=== PATIENT | male | born 1955 | race Caucasian/White ===

== ENCOUNTER 2019-07-17 19:23 | Emergency (ER) | payer MEDICARE, OTHER ==
[~2019-07-17] VITALS: Ht 170.2 cm; Wt 83.9 kg
[~2019-07-17 19:23] MED LIST: ASPIR 8181 MG PO; CARVEDILOL25 MG PO; FUROSEMIDE40 MG PO; GLIPIZIDE5 MG PO; K DUR10 MEQ PO; KOMBIGLYZE XR1 EACH PO; LANTUS100 UNITS/ SQ; LISINOPRIL10 MG PO; LOSARTAN POTASS50 MG PO; MECLIZINE HCL12.5 MG PO; OMEPRAZOLE40 MG PO; PLAVIX75 MG PO; SIMVASTATIN20 MG PO
--- OUTSIDE RECORDS SUMMARY | 2019-07-17 19:26 | XMS REPORT | Clinical Summary ---
Author Author [facility] Organization [facility] Address Unknown Phone Unavailable Care Team Providers Care Analyst Competitive Intelligence Name Role Phone Christopher Dent MD PCP Allergies No Known Allergies Medications End Date Status Medication Sig Dispensed Refills Start Date Active aspirin (ECOTRIN) 81 MG Take 81 mg by 0 enteric coated tablet mouth every evening. Active furosemide (LASIX) 40 mg Take 40 mg by 0 tablet mouth daily as needed. Active pantoprazole (PROTONIX) Take 40 mg by 0 40 MG EC tablet mouth daily. Active clopidogrel (PLAVIX) 75 Take 75 mg by 0 mg tablet mouth every morning. Active empagliflozin (JARDIANCE) Take 25 mg by 0 25 mg tablet mouth daily. Active potassium chloride Take 8 mEq by 0 (KLOR-CON 8) 8 MEQ CR mouth daily tablet as needed. Active carvedilol (COREG) 25 MG 1 tablet with 0 tablet food BID Active losartan (COZAAR) 25 MG Take 12.5 mg 0 tablet by mouth nightly. 11/10/2018 Discontinued (Stop Taking at Discharge) carvedilol (COREG) 25 MG Take 25 mg by 0 tablet mouth 2 (two) times a day with meals. 08/14/2018 Discontinued (Reorder) levocetirizine (XYZAL) 5 Take 1 tablet 30 tablet 11 201 MG tablet (5 mg total) 8 by mouth every evening. 08/14/2018 Discontinued (Reorder) azelastine (ASTELIN) 137 1 spray into 30 mL 12 mcg (0.1 %) nasal spray each nostril 8 2 (two) times a day. Use in each nostril as directed 11/09/2018 Discontinued levocetirizine (XYZAL) 5 Take 1 tablet 90 tablet 3 201 MG tablet (5 mg total) 8 by mouth every evening. 11/25/2018 Discontinued (Therapy completed) azelastine (ASTELIN) 137 1 spray into 90 mL 3 mcg (0.1 %) nasal spray each nostril 8 2 (two) times a day. Use in each nostril as directed 11/10/2018 Discontinued (Stop Taking at Discharge) potassium chloride Take 10 mEq 0 (K-DUR,KLOR-CON) 10 MEQ by mouth 2 CR tablet (two) times a day. 06/13/2019 Discontinued cyanocobalamin (VITAMIN Take 1,000 0 B-12) 1000 MCG tablet mcg by mouth 2 (two) times a day. 06/13/2019 Discontinued cholecalciferol, vitamin Take 1,000 0 D3, (VITAMIN D3) 1,000 Units by unit tablet mouth every morning. 06/13/2019 Discontinued multivitamin (THERAGRAN) Take 1 tablet 0 tablet by mouth daily. 12/10/2018 carvedilol (COREG) 12.5 Take 1 tablet 60 tablet 0 MG tablet (12.5 mg 8 total) by mouth 2 (two) times a day with meals for 30 days. 12/10/2018 losartan (COZAAR) 25 MG Take 1 tablet 30 tablet 0 tablet (25 mg total) 8 by mouth daily for 30 days. 12/10/2018 digOXIN (LANOXIN) 125 mcg Take 1 tablet 30 tablet 0 tablet (125 mcg 8 total) by mouth daily for 30 days. 06/13/2019 Discontinued sitaGLIPtin-metformin Take 1 tablet 0 (JANUMET XR) 100-1,000 mg by mouth tablet, ER multiphase 24 every hr evening. 12/15/2018 ranolazine (RANEXA) 500 Take 1 tablet 60 tablet 0 MG 12 hr ER tablet (500 mg 8 total) by mouth 2 (two) times a day for 30 days. 11/26/2018 Discontinued (Stop Taking at Discharge) isosorbide mononitrate Take 1 tablet 30 tablet 0 (IMDUR) 30 MG 24 hr (30 mg total) 8 tablet by mouth daily for 30 days. 06/14/2019 Discontinued (Stop Taking at Discharge) DIGOX 125 mcg tablet TK 1 T PO QD 3 9 06/13/2019 Discontinued zolpidem CR (AMBIEN CR) 1 tablet at 0 12.5 MG CR tablet bedtime 07/14/2019 amIODarone (PACERONE) 400 Take 1 tablet 30 tablet 0 MG tablet (400 mg 9 total) by mouth daily for 30 days. Active Problems Problem Noted Date Angina effort 11/25/2018 CAD (coronary artery disease) 11/25/2018 Chest pain 11/15/2018 AICD discharge 11/08/2018 Resolved Problems Problem Noted Date Resolved Date SOB (shortness of breath) 11/14/2018 11/15/2018 Encounters Care Team Description Date Type Specialty Aneesh Chang MD Zachariah, MD Inga Marie, Hansel Tolbert MD Chest pain, unspecified type (Primary Dx); Defibrillator discharge 06/12/2019 [facility] General Internal Medicine - Encounter 06/14/2019 Supa Flores MD PCI W/ STENTING [63584 (CPT)] 11/25/2018 Surgery Procedural Cardiology Supa Flores MD 11/25/2018 Hospital Intensive Care - Encounter 11/26/2018 Kaelyn Nichole MD Left heart cath w lv gram cors. Dr Flores on standby [64685 (CPT)] 11/15/2018 Surgery Procedural Cardiology Dusty Duong MD Ghosh, Sidharth, MD SOB (shortness of breath) (Primary Dx); Chest pain at rest; Other forms of angina pectoris (HCC) 11/14/2018 [facility] General Internal Medicine - Encounter 11/15/2018 Ja Dougherty DO Ghosh, Sidharth, MD AICD discharge (Primary Dx); SVT (supraventricular tachycardia) (HCC) 11/08/2018 [facility] General Surgery - Encounter 11/10/2018 11/08/2018 Travel Tracy Burns MA 08/20/2018 Telephone Otolaryngology Elizabeth Dias MD Chronic allergic rhinitis, unspecified seasonality, unspecified trigger (Primary Dx) 08/14/2018 Office Visit Otolaryngology after 07/16/2018 Social History Date Tobacco Use Types Packs/Day Years Used Never Smoker Smokeless Tobacco: Never Used Drinks/Week oz/Week Comments Alcohol Use No Sex Assigned at Date Recorded Not on file Industry Job Start Date Occupation Not on file Not on file Not on file Travel End Travel History Travel Start No recent travel history available. Last Filed Vital Signs Reading Time Taken Comments Vital Sign 108/67 06/14/2019 11:46 AM CDT Blood Pressure 79 06/14/2019 11:46 AM CDT Pulse 36.7 C (98 F) 06/14/2019 11:46 AM CDT Temperature 12 06/14/2019 11:46 AM CDT Respiratory Rate 94% 06/14/2019 11:46 AM CDT Oxygen Saturation - - Inhaled Oxygen Concentration 78 kg (172 lb) 11/25/2018 11:53 AM NUT PACKER Weight 165.1 cm (5' 5") 06/12/2019 8:26 PM CDT Height 26.94 11/25/2018 11:53 AM NUT PACKER Body Mass Index Plan of Treatment Health Maintenance Due Date Last Done Comments COLONOSCOPY SCREENING 2004 SHINGLES VACCINES (#1) 2004 INFLUENZA VACCINE 06/19/2019 Implants Device Identifier Shelf Expiration Date Model / Serial / Lot Implanted Type Area Manufactur er 10/18/2020 [id number] / / [id number] Device Vasclr Clsr Baln Cath 10ml Cardiovasc Right: Groin CARDINAL Lkng Sy[id number] Implants Implanted: Qty: 1 on 11/25/2018 by Neeta Espinoza at [facility] 06/26/2020 [id number] / / [id number] Stent Cornorary Syst Synergy (Mr) Coronary N/A: Coronary BSC 2.50mm X 16mm - [id number] Stents INTERVENTI Implanted: Qty: 1 on 11/25/2018 by Supa Claire MD at [facility] Procedures Comments Procedure Name Priority Date/Time Associated Diagnosis POC GLUCOSE Routine 06/14/2019 11:47 AM CDT LIPID PANEL Routine 06/14/2019 7:20 AM CDT ECG 12-LEAD Routine 06/14/2019 5:59 AM CDT POC GLUCOSE Routine 06/14/2019 5:41 AM CDT POC GLUCOSE Routine 06/13/2019 8:30 PM CDT POC GLUCOSE Routine 06/13/2019 5:03 PM CDT POC GLUCOSE Routine 06/13/2019 11:24 AM CDT TROPONIN Timed 06/13/2019 7:49 AM CDT POC GLUCOSE Routine 06/13/2019 7:30 AM CDT TROPONIN Timed 06/13/2019 4:50 AM CDT TROPONIN Timed 06/13/2019 12:46 AM CDT B NATRIURETIC PEPTIDE STAT 06/12/2019 9:[address] HEAD WO CONTRAST STAT 06/12/2019 9:34 PM CDT XR CHEST 1 VW PORTABLE STAT 06/12/2019 9:31 PM CDT HC COMPLETE BLD COUNT STAT 06/12/2019 W/AUTO DIFF 9:14 PM CDT ESTIMATED GFR Routine 06/12/2019 8:45 PM CDT TROPONIN Routine 06/12/2019 8:45 PM CDT CREATINE KINASE, TOTAL Routine 06/12/2019 (CPK) 8:45 PM CDT COMPREHENSIVE METABOLIC Routine 06/12/2019 PANEL 8:45 PM CDT ECG 12-LEAD Routine 06/12/2019 8:30 PM CDT CV PCI STENT Routine 11/25/2018 3:12 PM NUT PACKER POC GLUCOSE Routine 11/25/2018 3:11 PM NUT PACKER ECG 12-LEAD Routine 11/25/2018 11:35 AM NUT PACKER TYPE AND SCREEN STAT 11/25/2018 11:25 AM NUT PACKER ESTIMATED GFR STAT 11/25/2018 11:23 AM NUT PACKER DIGOXIN LEVEL STAT 11/25/2018 11:23 AM NUT PACKER PARTIAL THROMBOPLASTIN STAT 11/25/2018 TIME (PTT) 11:23 AM NUT PACKER PROTHROMBIN TIME WITH INR STAT 11/25/2018 11:23 AM NUT PACKER BASIC METABOLIC PANEL STAT 11/25/2018 11:23 AM NUT PACKER HC COMPLETE BLD COUNT STAT 11/25/2018 W/AUTO DIFF 11:23 AM NUT PACKER XR CHEST 2 VW Routine 11/25/2018 11:10 AM NUT PACKER POC GLUCOSE Routine 11/15/2018 4:02 PM NUT PACKER CV SELECTIVE CORONARY Routine 11/15/2018 ANGIOGRAPHY 12:20 PM NUT PACKER ECG 12-LEAD Routine 11/15/2018 8:51 AM NUT PACKER LIPID PANEL Routine 11/15/2018 8:03 AM NUT PACKER THYROID STIMULATING Routine 11/15/2018 HORMONE 8:03 AM NUT PACKER MAGNESIUM LEVEL Routine 11/15/2018 8:03 AM NUT PACKER TROPONIN Timed 11/15/2018 8:03 AM NUT PACKER POC GLUCOSE Routine 11/15/2018 5:03 AM NUT PACKER ECG 12-LEAD Routine 11/15/2018 4:25 AM NUT PACKER TROPONIN Timed 11/15/2018 4:10 AM NUT PACKER ECG 12-LEAD Routine 11/15/2018 12:[address] ANGIOGRAM PE CHEST STAT 11/14/2018 10:50 PM NUT PACKER ECG ED PRELIMINARY Routine 11/14/2018 INTERPRETATION 9:26 PM NUT PACKER XR CHEST 1 VW PORTABLE STAT 11/14/2018 9:22 PM NUT PACKER ESTIMATED GFR STAT 11/14/2018 9:10 PM NUT PACKER COMPREHENSIVE METABOLIC STAT 11/14/2018 PANEL 9:10 PM NUT PACKER TROPONIN STAT 11/14/2018 9:10 PM NUT PACKER B NATRIURETIC PEPTIDE STAT 11/14/2018 9:10 PM NUT PACKER DIGOXIN LEVEL STAT 11/14/2018 9:10 PM NUT PACKER HC COMPLETE BLD COUNT STAT 11/14/2018 W/AUTO DIFF 9:10 PM NUT PACKER ECG 12-LEAD STAT 11/14/2018 9:05 PM NUT PACKER POC GLUCOSE Routine 11/10/2018 5:36 AM NUT PACKER ESTIMATED GFR Routine 11/10/2018 4:55 AM NUT PACKER IONIZED CALCIUM Routine 11/10/2018 4:55 AM NUT PACKER MAGNESIUM LEVEL Routine 11/10/2018 4:55 AM NUT PACKER HC COMPLETE BLD COUNT Routine 11/10/2018 W/AUTO DIFF 4:55 AM NUT PACKER BASIC METABOLIC PANEL Routine 11/10/2018 4:55 AM NUT PACKER POC GLUCOSE Routine 11/09/2018 8:25 PM NUT PACKER POC GLUCOSE Routine 11/09/2018 5:19 PM NUT PACKER ECHOCARDIOGRAM 2D Routine 11/09/2018 COMPLETE W MMODE SPECTRAL 1:03 PM NUT PACKER COLOR DOPPLER ([id number]) POC GLUCOSE Routine 11/09/2018 11:53 AM NUT PACKER ESTIMATED GFR Routine 11/09/2018 7:30 AM NUT PACKER BASIC METABOLIC PANEL Routine 11/09/2018 7:30 AM NUT PACKER IONIZED CALCIUM Routine 11/09/2018 7:30 AM NUT PACKER MAGNESIUM LEVEL Routine 11/09/2018 7:30 AM NUT PACKER TROPONIN Timed 11/09/2018 4:30 AM NUT PACKER TROPONIN Timed 11/09/2018 12:00 AM NUT PACKER XR CHEST 1 VW PORTABLE STAT 11/08/2018 7:41 PM NUT PACKER ESTIMATED GFR STAT 11/08/2018 7:16 PM NUT PACKER CREATINE KINASE, TOTAL STAT 11/08/2018 (CPK) 7:16 PM NUT PACKER BASIC METABOLIC PANEL STAT 11/08/2018 7:16 PM NUT PACKER TROPONIN STAT 11/08/2018 7:16 PM NUT PACKER HC COMPLETE BLD COUNT STAT 11/08/2018 W/AUTO DIFF 7:16 PM NUT PACKER ECG 12-LEAD STAT 11/08/2018 7:09 PM NUT PACKER ECG ED PRELIMINARY Routine 11/08/2018 INTERPRETATION 7:07 PM NUT PACKER after 07/16/2018 Results * POC glucose (06/14/2019 11:47 AM CDT) Only the most recent of 13 results within the time period is included. [facility] POC glucose 197 (H) 65 - 99 mg/dL EMPIRE Comment: [facility] Meter ID: [id number] [facility] Perishable Fruit Inspector: Corie Marsh Specimen Performing Organization Address City/State/Zipcode [place] [address] [place] [phone] PATHOLOGY AND GENOMIC MEDICINE [facility] [address] [place] [id number] [facility] * Lipid panel (06/14/2019 7:20 AM CDT) Only the most recent of 2 results within the time period is included. [facility] Cholesterol 136 <200 mg/dL [facility] Triglycerides 308 (A) <150 mg/dL [facility] HDL cholesterol 32 (L) >40 mg/dL [facility] LDL cholesterol 84Comment: Result obtained by <100 mg/dL EMPIRE direct LDL measurement [facility] Lipid panel [facility] interpretation Comment: MICA H[facility] Total Cholesterol [facility] (mg/dL) <200 Desirable 200-239Borderline -high >=240High Triglycerides (mg/dL) <150 Normal 150-199Borderline -high 200-499High >=500Very high HDL Cholesterol (mg/dL) <40Low (male) <40Low (female) LDL Cholesterol (mg/dL) <100 Optimal 100-129Near or above optimal 130-159Borderline -high 160-189High >=190Very high Risk Catergories that modify LDL goals. Risk Catergories LDL goal (mg/dL) CHD and CHD risk equivalent<100 (10-year risk >20%) Multiple (2+) risk factors <130 (10-year risk=<20%) 0-1 risk factors <160 (<10-year risk) Defining levels of lipids in metabolic syndrome Triglycerides >=150 mg/dL HDL Cholesterol Men <40 mg/dL Women <40 mg/dL Non-HDL cholesterol is a second target for therapy in persons with high triglycerides (>=200 mg/dL) Specimen Plasma specimen Performing Organization Address City/State/[facility] Phone Number [place] [address] [address] [address] PATHOLOGY AND GENOMIC MEDICINE [facility] [id number] [place] [address] [place] [phone] [facility] * ECG 12 lead (06/14/2019 5:59 AM CDT) Only the most recent of 8 results within the time period is included. Ventricular 77 [facility] rate Atrial rate 77 [facility] MO interval 174 [facility] QRSD interval 90 [facility] QT interval 348 [facility] QTC interval 393 [facility] P axis 1 72 [facility] QRS axis 1 -11 [facility]USE T wave axis 270 [facility] EKG impression Normal sinus rhythm-Low [facility]USE voltage QRS-Nonspecific ST and T wave abnormality-Abnormal ECG-No previous ECGs available- Specimen Narrative Performed At Performing Organization Address City/[facility] Phone Number [facility] [address] [place] [address] * Troponin (06/13/2019 7:49 AM CDT) Only the most recent of 10 results within the time period is included. Troponin 0.017 0.000 - 0.040 ng/mL EMPIRE Comment: MICA HAMILTON [facility] changed methodology effective: 03/25/2019 at 10:00 am The new method has a 99th percentile cutoff of 0.040 ng/mL Specimen Plasma specimen Performing Organization Address [facility] Phone Number [facility] [address] [address] PATHOLOGY AND GENOMIC MEDICINE [address] [place] [address] * B natriuretic peptide (06/12/2019 9:40 PM CDT) Only the most recent of 2 results within the time period is included. BNP 46 0 - 100 pg/mL [facility] Specimen Blood Performing Organization Address [facility] Phone Number [facility] [address] [place] [address] PATHOLOGY AND GENOMIC MEDICINE [address] * CT Head Wo Contrast (06/12/2019 9:34 PM CDT) Specimen Narrative Performed At EXAM: CT HEAD WO CONTRAST [facility] CLINICAL HISTORY: worsening headache TECHNIQUE: Noncontrast enhanced images of the brain were obtained from the skull base to the vertex. Both soft tissue and bone reconstruction algorithms were performed. CT scans are performed using radiation dose reduction techniques (iterative reconstruction and/or automated exposure control). Technical factors are evaluated and adjusted to ensure appropriate moderation of exposure. Automated dose management technology is applied to adjust radiation exposure while achieving a diagnostic quality image. COMPARISON:None. 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 Correlate findings with clinical history and prior imaging if available. If not available, nonemergent MRI of the brain should be considered for further evaluation. The zeng-white matter differentiation is preserved and without evidence of acute territorial infarction. There is no evidence for acute intracranial hemorrhage, mass, mass effect, hydrocephalus, or extra-axial fluid collection. Orbits are unremarkable.Paranasal sinuses are clear.Mastoid air cells are normally pneumatized.Osseous structures are intact. 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 Correlate findings with clinical history and prior imaging if available. If not available, nonemergent MRI of the brain should be considered for further evaluation. No CT evidence for acute intracranial abnormality. [facility]-[id number] Procedure Note Hm Interface, Radiology Results Incoming - 06/12/2019 9:44 PM CDT EXAM: CT HEAD WO CONTRAST CLINICAL HISTORY: worsening headache TECHNIQUE: Noncontrast enhanced images of the brain were obtained from the skull base to the vertex. Both soft tissue and bone reconstruction algorithms were performed. CT scans are performed using radiation dose reduction techniques (iterative reconstruction and/or automated exposure control). Technical factors are evaluated and adjusted to ensure appropriate moderation of exposure. Automated dose management technology is applied to adjust radiation exposure while achieving a diagnostic quality image. COMPARISON: None. 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 Correlate findings with clinical history and prior imaging if available. If not available, nonemergent MRI of the brain should be considered for further evaluation. The zeng-white matter differentiation is preserved and without evidence of acute territorial infarction. There is no evidence for acute intracranial hemorrhage, mass, mass effect, hydrocephalus, or extra-axial fluid collection. Orbits are unremarkable. Paranasal sinuses are clear. Mastoid air cells are normally pneumatized. Osseous structures are intact. 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 Correlate findings with clinical history and prior imaging if available. If not available, nonemergent MRI of the brain should be considered for further evaluation. No CT evidence for acute intracranial abnormality. [facility]-[id number] Performing Organization Address City/State/Zipcode Phone Number [facility] [address] [place] [address] * XR Chest 1 Vw Portable (06/12/2019 9:31 PM CDT) Only the most recent of 3 results within the time period is included. Specimen Narrative Performed At EXAMINATION: XR CHEST 1 VW PORTABLE [facility] CLINICAL HISTORY: SOB COMPARISON:11/25/2018. IMPRESSION: Right AICD with stable lead. The lungs are clear. No pleural effusion or pneumothorax. The cardiomediastinal silhouette is normal. No acute osseous abnormalities. [facility]-[id number] Procedure Note Hm Interface, Radiology Results Incoming - 06/12/2019 9:45 PM CDT EXAMINATION: XR CHEST 1 VW PORTABLE CLINICAL HISTORY: SOB COMPARISON: 11/25/2018. IMPRESSION: Right AICD with stable lead. The lungs are clear. No pleural effusion or pneumothorax. The cardiomediastinal silhouette is normal. No acute osseous abnormalities. [facility]-[id number] Performing Organization Address [facility] Phone Number [facility] [address] [place] [address] * CBC with platelet and differential (06/12/2019 9:14 PM CDT) Only the most recent of 5 results within the time period is included. WBC 13.07 (H) 4.50 - 11.00 k/uL [facility] RBC 4.70 4.40 - 6.00 m/uL [facility] HGB 15.0 14.0 - 18.0 g/dL [facility] HCT 43.4 41.0 - 51.0 % [facility] MCV 92.3 82.0 - 100.0 fL [facility] MCH 31.9 27.0 - 34.0 pg [facility] MCHC 34.6 31.0 - 37.0 g/dL [facility] RDW - SD 42.1 37.0 - 55.0 fL [facility] MPV 12.1 8.8 - 13.2 fL [facility] Platelet count 184 150 - 400 k/uL [facility] Nucleated RBC 0.00 /100 WBC [facility] Neutrophils 62.3 39.0 - 69.0 % [facility] Lymphocytes 24.6 (L) 25.0 - 45.0 % [facility] Monocytes 10.7 (H) 0.0 - 10.0 % [facility] Eosinophils 1.4 0.0 - 5.0 % [facility] Basophils 0.5 0.0 - 1.0 % [facility] Specimen Blood Performing Organization Address City/[facility]/Zipcode Phone Number [facility] [place] [id number] [place] [address] [place] [address] PATHOLOGY AND GENOMIC MEDICINE [address] * Estimated GFR (06/12/2019 8:45 PM CDT) Only the most recent of 6 results within the time period is included. [facility] Estimated GFR 89 mL/min/1.73 m2 EMPIRE Comment: [facility] rpretation G1 >=90 Normal or high G2 60-89Mildly decreased [id number] Mildly to moderately decreased [id number] Moderately to severely decreased G4 15-29Severely decreased G5 <15Kidney failure The eGFR was calculated using the Chronic Kidney Disease Epidemiology Collaboration (CKD-EPI) equation. Interpretation is based on recommendations of the National Kidney Foundation-Kidney Disease Outcomes Quality Initiative (NKF-KDOQI) published in 2014. Specimen Plasma specimen Performing Organization Address [facility] Phone Number [address] [place] [address] PATHOLOGY AND [facility] MEDICINE [address] * Creatine kinase, total (CPK) (06/12/2019 8:45 PM CDT) Only the most recent of 2 results within the time period is included. [facility] Creatine kinase 185 39 - 308 U/L [facility] Specimen Plasma specimen Performing Organization Address [facility] Phone Number [facility] DE[facility] [address] [place] [address] PATHOLOGY AND [facility] MEDICINE [address] * Comprehensive metabolic panel (06/12/2019 8:45 PM CDT) Only the most recent of 2 results within the time period is included. [facility] Sodium 139 135 - 148 mEq/L [facility] Potassium 3.9 3.5 - 5.0 mEq/L [facility] Chloride 105 98 - 112 mEq/L [facility] CO2 20 (L) 24 - 31 mEq/L [facility] Anion gap 14@ANIO 7 - 15 mEq/L [facility] BUN 10 8 - 23 mg/dL [facility] Creatinine 0.90 0.70 - 1.20 mg/dL [facility] Glucose 259 (H) 65 - 99 mg/dL [facility] Calcium 9.6 8.8 - 10.2 mg/dL [facility] Protein 6.9 6.3 - 8.3 g/dL EMPIRE Comment: [facility] 4.6-7.0 g/dL 1 week 4.4-7.6 g/dL 7 months-1year 5.1-7.3 g/dL 1-2 years5.6-7 .5 g/dL >3 years6.0-8 .0 g/dL 18-150 6.3-8.3 g/dL Albumin 4.6 3.5 - 5.0 g/dL [facility] A/G ratio 2.0 0.7 - 3.8 [facility] Alkaline 114 40 - 129 U/L EMPIRE phosphatase [facility] AST 19 10 - 50 U/L [facility] ALT 25 5 - 50 U/L [facility] Total bilirubin 0.3 0.0 - 1.2 mg/dL [facility] Specimen Plasma specimen Performing Organization Address City/State/Zipcode [place] Number [place] [address] [place] [address] PATHOLOGY AND GENOMIC MEDICINE [facility] [address] * Cv solar lab technician procedure (11/25/2018 3:12 PM NUT PACKER) Specimen Narrative Performed At CUPID PROCEDURE: Intracoronary stent placement in the AV circumflex artery. INDICATION: 1.Angina. 2.Coronary artery disease. COMPLICATIONS: None. ANESTHESIA: Versed, fentanyl, and lidocaine. TECHNIQUE: The right groin was draped and prepped in the usual fashion.The area was anesthetized with lidocaine.Standard Seldinger technique was used to place a 6-Yi sheath into the right femoral artery without difficulty.An XB 3.5 guiding catheter was used to selectively engage the left coronary artery. A ChoICE PT wire was used to cross the area of 70% stenosis in the distal circumflex artery.The area was predilated with a 2.5 x 12 mm balloon.A 2.5 mm x 16 mm Synergy stent was then deployed at 16 atmospheres for 30 seconds with minimal residual stenosis.The stent was then postdilated with a 2.5 mm x 12 mm noncompliant balloon inflated up to 18 atmospheres.A Mynx device was used for closure.There were no complications. CONCLUSIONS: Successful stent placement in the distal circumflex artery. Performing Organization Address [facility] Phone Number [facility] [address] [place] [address] * Type and screen (11/25/2018 11:25 AM NUT PACKER) Pathologist [facility] ABO grouping O [facility] Rh type POS [facility] Antibody screen NEG [facility] Specimen Blood Performing Organization Address [facility] Phone Number [address] [place] [address] PATHOLOGY [facility] MEDICINE [address] * Partial thromboplastin time, activated (11/25/2018 11:23 AM NUT PACKER) [facility] PTT 19.7 (L) 23.0 - 36.0 sec EMPIRE Comment: [facility] PTT therapeutic range for [facility] unfractionated heparin is 61.0-112.0 seconds which corresponds to Anti-Xa 0.3-0.7 U/ml. Specimen Blood Performing Organization Address [facility] [place] [facility] Phone Number [address] [place] [place] AND [address] * Prothrombin time with INR (11/25/2018 11:23 AM NUT PACKER) [facility] Prothrombin 13.5 11.5 - 14.5 sec [facility] INR 1.1 EMPIRE Comment: [facility] The International Normalized [facility] Ratio (INR) is a therapeutic monitoring tool for patients who are stable on oral anticoagulant therapy. An INR of 2.0-3.0 is suggested for deep vein thrombosis/pulmonary embolism. Specimen Blood Performing Organization Address [facility] Phone Number [address] [place] [address] PATHOLOGY [facility] MEDICINE [address] * Digoxin level (11/25/2018 11:23 AM NUT PACKER) Only the most recent of 2 results within the time period is included. Pathologist [facility] Digoxin 0.9 0.8 - 2.0 ng/mL EMPIRE Comment: [facility] For valid Digoxin results, at [facility] least 6 hours should elapse between time of last dose and collection of blood. Otherwise, result may be false high. Therapeutic Range: 0.8 - 2.0 ng/mL Specimen Plasma specimen Performing Organization Address [facility] Phone Number [facility] [address] [place] [address] PATHOLOGY AND GENOMIC MEDICINE [address] * Basic metabolic panel (11/25/2018 11:23 AM NUT PACKER) Only the most recent of 4 results within the time period is included. [facility] Sodium 143 135 - 148 mEq/L [facility] Potassium 4.6 3.5 - 5.0 mEq/L [facility] Chloride 104 98 - 112 mEq/L [facility] CO2 26 24 - 31 mEq/L [facility] Anion gap 13@ANIO 7 - 15 mEq/L [facility] BUN 17 8 - 23 mg/dL [facility] Creatinine 0.90 0.70 - 1.20 mg/dL [facility] Glucose 150 (H) 65 - 99 mg/dL [facility] Calcium 10.3 (H) 8.8 - 10.2 mg/dL [facility] Specimen Plasma specimen Performing Organization Address [facility] Phone Number [facility] [address] [place] [address] PATHOLOGY AND GENOMIC MEDICINE [address] * XR Chest 2 Vw (11/25/2018 11:10 AM NUT PACKER) Specimen Narrative Performed At EXAMINATION:XR CHEST 2 VW [facility] CLINICAL HISTORY:pre-op COMPARISON:Chest x-ray 11/14/2018 IMPRESSION: Frontal and lateral views reveal a stable cardiomediastinal silhouette with a single lead right-sided AICD. Lungs are clear. Pleural margins are sharp. The remainder of the examination is unchanged. [id number] Procedure Note Hm Interface, Radiology Results Incoming - 11/25/2018 11:15 AM NUT PACKER EXAMINATION: XR CHEST 2 VW CLINICAL HISTORY: pre-op COMPARISON: Chest x-ray 11/14/2018 IMPRESSION: Frontal and lateral views reveal a stable cardiomediastinal silhouette with a single lead right-sided AICD. Lungs are clear. Pleural margins are sharp. The remainder of the examination is unchanged. [id number] Performing Organization Address City/State/Zipcode Phone Number [facility] [address] [place] [address] * Cv solar lab technician procedure (11/15/2018 12:20 PM NUT PACKER) Specimen Narrative Performed At Performing Organization Address City/[facility]/Zipcode Phone Number [facility] [address] [place] [address] * Thyroid stimulating hormone (11/15/2018 8:03 AM NUT PACKER) TSH 2.20 0.27 - 4.20 uIU/mL [facility] Specimen Plasma specimen Performing Organization Address [facility] Phone Number [facility] DEPARTMENT [address] [place] [address] PATHOLOGY [facility] MEDICINE [address] * Magnesium level (11/15/2018 8:03 AM NUT PACKER) Only the most recent of 3 results within the time period is included. Magnesium 2.2 1.6 - 2.4 mg/dL [facility] Specimen Plasma specimen Performing Organization Address [facility] Phone Number [address] [place] [address] PATHOLOGY AND [facility] MEDICINE [address] * CT Angiogram Pe Chest (11/14/2018 10:50 PM NUT PACKER) Specimen Narrative Performed At CT ANGIOGRAM PE CHEST [facility] CLINICAL INDICATION: chest painSOBdizziness COMPARISON: Chest radiograph 11/14/2018. TECHNIQUE:CT angiographic images of the chest were obtained during intravenous administration of iodinated contrast.Computerized, reformatted images and 3-D MIP images were obtained and archived (per CT pulmonary embolism protocol). CT scans are performed using radiation dose reduction techniques (iterative reconstruction and/or automated exposure control). Technical factors are evaluated and adjusted to ensure appropriate moderation of exposure. Automated dose management technology is applied to adjust radiation exposure while achieving a diagnostic quality image. FINDINGS: Pulmonary arteries: Diagnostic quality of study is adequate for the evaluation of pulmonary embolism. There is no evidence of acute or chronic pulmonary embolism.No evidence of right heart strain. The main pulmonary artery measures 25 mm in luminal diameter. Aorta:Poorly contrast opacified. Grossly no aortic aneurysm. Moderate calcific atherosclerosis. Lungs and large airways:Dependent subsegmental atelectasis/scarring. No acute airspace consolidation. Pleura:No pleural effusion, pleural thickening, or pneumothorax. Heart and pericardium:Heart size is marginal. Coronary atherosclerosis. No pericardial effusion. Mediastinum and barrett:No mass or hematoma. Lymph nodes:No pathological adenopathy in the barrett, axilla or mediastinum. Chest wall: Right anterior chest wall cardiac device lead projects to the right ventricle. Bones:Mild degenerative changes. Upper abdomen: Right hepatic cyst measuring 1.7 cm. IMPRESSION: 1. Negative CTA examination for pulmonary embolism. 2. Lungs without acute airspace consolidation. [facility]-[id number] Procedure Note [facility], Radiology Results Incoming - 11/14/2018 10:[address] ANGIOGRAM PE CHEST CLINICAL INDICATION: chest pain SOB dizziness COMPARISON: Chest radiograph 11/14/2018. TECHNIQUE: CT angiographic images of the chest were obtained during intravenous administration of iodinated contrast. Computerized, reformatted images and 3-D MIP images were obtained and archived (per CT pulmonary embolism protocol). CT scans are performed using radiation dose reduction techniques (iterative reconstruction and/or automated exposure control). Technical factors are evaluated and adjusted to ensure appropriate moderation of exposure. Automated dose management technology is applied to adjust radiation exposure while achieving a diagnostic quality image. FINDINGS: Pulmonary arteries: Diagnostic quality of study is adequate for the evaluation of pulmonary embolism. There is no evidence of acute or chronic pulmonary embolism. No evidence of right heart strain. The main pulmonary artery measures 25 mm in luminal diameter. Aorta: Poorly contrast opacified. Grossly no aortic aneurysm. Moderate calcific atherosclerosis. Lungs and large airways: Dependent subsegmental atelectasis/scarring. No acute airspace consolidation. Pleura: No pleural effusion, pleural thickening, or pneumothorax. Heart and pericardium: Heart size is marginal. Coronary atherosclerosis. No pericardial effusion. Mediastinum and barrett: No mass or hematoma. Lymph nodes: No pathological adenopathy in the barrett, axilla or mediastinum. Chest wall: Right anterior chest wall cardiac device lead projects to the right ventricle. Bones: Mild degenerative changes. Upper abdomen: Right hepatic cyst measuring 1.7 cm. IMPRESSION: 1. Negative CTA examination for pulmonary embolism. 2. Lungs without acute airspace consolidation. [facility]-[id number] Performing Organization Address City/[facility] Phone Number [facility] [address] [place] [address] * ECG ED Preliminary Interpretation - Not an Order (11/14/2018 9:26 PM NUT PACKER) Only the most recent of 2 results within the time period is included. Narrative Performed At Dusty Duong MD 11/14/2018 11:14 PM ECG ED Preliminary Interpretation - Not an Order Performed by: Dusty Duong MD Authorized by: Dusty Duong MD ECG reviewed by ED Physician in the absence of a marine electronics repairer: yes Previous ECG: Previous ECG:Compared to current Comparison ECG info:11/08/2018 Similarity:No change Interpretation: Interpretation: normal Rate: ECG rate:93 ECG rate assessment: normal Rhythm: Rhythm: sinus rhythm Ectopy: Ectopy: none and PVCs QRS: QRS axis:Normal QRS intervals:Normal Conduction: Conduction: normal ST segments: ST segments:Normal T waves: T waves: normal and non-specific Comments: Read at 2105 * Ionized calcium (11/10/2018 4:55 AM NUT PACKER) Only the most recent of 2 results within the time period is included. pH 7.39 [facility] Ionized calcium 1.14 1.11 - 1.32 mmol/L [facility] Specimen Plasma specimen Performing Organization Address [facility] [place] Number [place] [address] [facility] [place] [address] PATHOLOGY AND GENOMIC MEDICINE [address] [place] [address] [facility] * Echocardiogram complete w contrast and 3D if needed (11/09/2018 1:03 PM NUT PACKER) AoV Area, Vmax 2.40 cm2 [facility] AoV Area, VTI 2.47 cm2 [facility] AoV Mean PG 4.20 mmHg [facility] AoV Peak PG 7.39 mmHg [facility] AoV Vmax 1.36 m/s [facility] AoV VTI 0.21 m [facility] IVS,d 1.26 cm [facility] LV,d 4.42 cm [facility] LV EF,A2C 26.24 % [facility] LV EF,A4C 28.43 % [facility] LV EF,BP 28.26 % [facility] [place],d A2C 7.20 cm [facility] [place],d A4C 7.95 cm [facility] [place],s A2C 6.14 cm [facility] [place],s A4C 6.57 cm [facility] LV,s 3.85 cm [facility] LV SV,A2C 22.65 % [facility] LV SV,A4C 34.12 % [facility] LV Vol,d A2C 86.31 mL [facility] LV Vol,d A4C 120.04 ml [facility] LV Vol,d BP 106.46 ml [facility] LV Vol,s A2C 63.66 mL [facility] LV Vol,s A4C 85.92 ml [facility] LV Vol,s BP 76.38 nl [facility] LVOT Diam,S 2.03 cm [facility] LVOT Vmax 1.01 m/s [facility] LVOT VTI 0.16 m [facility] LVPWD,d 1.09 cm [facility] TR Vpeak 2.47 mm/s [facility] AR Press Half 201.17 ms [facility] Time MV E A ratio 0.64 [facility] TR pk grad 24.43 mmHg [facility] E wave 146.24 msec [facility] decelartion time MV Peak A Bridger 0.98 m/s [facility] MV valve area p 5.13 cm2 [facility] 1/2 method MV Peak E [place] 0.63 m/s [facility] MV stenosis 42.92 ms [facility] pressure 1/2 time AV LVOT peak 4.07 mmHg [facility] gradient LV SYS VOL 91.48 ml [facility] LV SOLIS VOL 126.79 ml [facility] LA area s A4C 14.32 cm2 [facility] LV SV Teich 2D 35.31 ml [facility] LVOT SI 26.93 ml/m2 [facility] AoV Cusp sep 2.02 [facility] AoV Vmn 0.99 [facility] IVS s 2D 1.31 [facility] AR slope 2.96 [facility] Ar Vmax 3.73 [facility] LA Ao Ratio 1.41 [facility] Mmode LVOT Vmn 0.68 [facility] Pt Size 170.18 [facility] Pt Wt 79.83 [facility] PV AT 62.80 msec [facility] LVOT mean grad 2.10 mmHg [facility] AR DT 1,221.56 msec [facility] AR pk grad 55.56 mmHg [facility] LVPW s PLAX 1.41 cm [facility] MV Decel slope 4.28 m/s2 [facility] LA Vol MOD A4C 34.59 ml [facility] Velocity Ratio 0.74 m/s [facility] (V1/V2) EF 27.85 % [facility] E/A ratio 0.64 [facility] LVOT area 3.23 cm2 [facility] LA volume 31.00 cm3 [facility] LA Area d A4C 35 cm2 [facility] RA pressure 5.00 mmHg [facility] RVSP 29.43 mmHg [facility] LA diam s 4.10 cm [facility] Aortic Root 2.94 cm [facility] AR maxPG 53.96 [facility] D E excurs 1.80 [facility] E f slope 0.12 [facility] E prime lat 0.12 [facility] E royal sept 0.07 [facility] PV acc T slope 10.80 [facility] Specimen Narrative Performed At [facility] Left ventricular systolic function is severely impaired. Left Ventricular ejection fraction is 25 - 30%. Left atrium size is mildly dilated. There is a trivial pericardial effusion localized posteriorly. Spectral Doppler shows impaired relaxation pattern of left ventricular diastolic filling. Stage I diastolic dysfunction. Performing Organization Address City/State/Zipcode Phone Number [facility] [address] [place] [address] after 07/16/2018 Insurance Type Payer Benefit Subscriber ID Effective Phone Address Plan / Dates Group HMO AMERIGROUP AMERIGROUP xxxxxxxxx 2019-P -AMERIVANT resent AGE MCR HMO HMO UHC MEDICAID UNITED[employer] xxxxxxxxx 2011-P COMM STAR+ resent [place] (Home) [place] [address] Advance Directives For more information, please contact: [phone] Patient Queen'S Counsel Explanation Type Date Recorded Advance Directives, 11/25/2018 10:50 AM Living Will and Medical Power of Manager Of Manufacturing Date Inactivated Comments Code Status Date Activated 06/14/2019 7:42 PM Full Code 06/13/2019 11:14 AM Code Status decision reached by: Patient 06/13/2019 11:14 AM Full Code 06/12/2019 11:05 PM Code Status decision reached by: Patient
--- OUTSIDE RECORDS SUMMARY | 2019-07-17 19:27 | XMS REPORT | Continuity of Care Document ---
Author Author [employer] Organization [employer] Address Unknown Phone Unavailable Care Team Providers Care Physiological Chemist Name Role Phone Machina Information [employer]works Unavailable Unavailable Problems Problem Status Onset Date Classification Date Reported Comments Source DM w/o complication type II, uncontrolled [facility] Diagnosis [facility] Lilliana Reflux esophagitis Active Diagnosis 03/11/2019 [facility] Lilliana Pure hypercholesterolemia Active Diagnosis 03/11/2019 [facility] Hepatitis B 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 Potassium 1 tablet Orally Active 8 Or[address] [facility] Multivitamin as direct NA [facility] Omeprazole 1 capsule Orally Active 40 MG Orally Once a day [facility] Aspirin 1 tablet Orally Active 81 MG Orally Once a day [facility] Plavix 1 tablet Orally Active 75 MG Orally Once a day [facility] Zolpidem Tartrate 1 tablet at bedtime Orally Active 5 MG Orally [facility] day [facility] Fluticasone Propionate 1 application to affected area Externally Active 0.005 % Externally Twice a day severino severino [facility] Simvastatin 1 tablet in the evening Orally Active 20 MG Orally [facility] Carvedilol 1 tablet with food Orally Active 25 MG Orally Twice a day [facility] Allergies, Adverse Reactions, Alerts Substance Category Reaction Severity Reaction type Status Date Reported Comments Source N.K.D.A. Adverse Reaction Info Not Available Adverse Reaction Active 07/09/2018 Ahmed Ahmed Immunizations No Data Provided for This Section Results No Data Provided for This Section Pathology Reports No Data Provided for This Section Diagnostic Reports No Data Provided for This Section Consultation Notes No Data Provided for This Section Discharge Summaries No Data Provided for This Section History and Physicals No Data Provided for This Section Vital Signs Vital Sign Value Date Comments Source Weight 170 07/09/2018 Ahmed Ahmed Heart Rate 88 07/09/2018 Ahmed Ahmed Diastolic (mm Hg) 82 07/09/2018 Ahmed Ahmed Systolic (mm Hg) 110 07/09/2018 Ahmed Ahmed Weight 170 05/29/2018 Ahmed Ahmed Heart Rate 99 05/29/2018 Ahmed Ahmed Diastolic (mm Hg) 80 05/29/2018 Ahmed Ahmed Systolic (mm Hg) 100 05/29/2018 Ahmed Ahmed Encounters No Data Provided for This Section Procedures No Data Provided for This Section Assessment and Plan No Data Provided for This Section Plan of Care No Data Provided for This Section Social History No Data Provided for This Section Family History No Data Provided for This Section Advance Directives No Data Provided for This Section Functional Status No Data Provided for This Section
--- OUTSIDE RECORDS SUMMARY | 2019-07-17 19:27 | XMS REPORT ---
Author Author Lilliana Tijerina Organization [employer] Address Unknown Phone Unavailable Care Team Providers Care Vulnerability Researcher Name Role Phone Lilliana Tijerina CP Unavailable Allergies, Adverse Reactions, Alerts Substance Reaction Event Type N.K.D.A. 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, type I [juvenile type], not stated as uncontrolled 250.01 Active Assessment Cardiac defibrillator in place Z95.810 Active Assessment Benign hypertensive heart disease without congestive heart failure I11.9 Active Assessment Coronary atherosclerosis I25.10 Active Medications Medication Code System Code Instructions Start Date End Date Status Dosage Aspirin ND 65638313240 81 MG Orally Once a day Active 1 tablet Carvedilol ND 26205832618 25 MG Orally Twice a day Active 1 tablet with food Simvastatin ND 71239946556 20 MG Orally Once a day Active 1 tablet in the evening Zolpidem Tartrate ND 14414814996 5 MG Orally Once a day Active 1 tablet at bedtime Potassium NDC 0 8 Orally Once a day Active 1 tablet Plavix ND 11017026834 75 MG Orally Once a day Active 1 tablet Omeprazole ND 49881427985 40 MG Orally Once a day Active 1 capsule Fluticasone Propionate ND 44208522670 0.005 % Externally Twice a day Active 1 application to affected area Multivitamin NDC 0 Active as direct Furosemide ND 38226351415 40 MG Orally Once a day Active 1 tablet Vital Signs Date/Time: Jul 09, 2018 BMI 33.20 Index Weight 170 lbs Height 5'7 in Cardiac Monitoring Heart Rate 88 /min Blood Pressure Diastolic 82 mm Hg Blood Pressure Systolic 110 mm Hg Results No Known Results Summary Purpose eClinicalWorks Submission
--- OUTSIDE RECORDS SUMMARY | 2019-07-17 19:27 | XMS REPORT ---
[facility] Address Unknown Phone Unavailable Care Team Providers Care Optimization Analyst Name Role Phone Unavailable Unavailable Payers Payer Name Policy Type Policy Number Effective Date Expiration Date Problems This patient has no known problems. Allergies, Adverse Reactions, Alerts Allergy Name Allergy Type Status Severity Reaction(s) Onset Date Inactive Date Treating Clinician Comments No Known Allergies DA Active U 2014-07-30 00:00:00 Medications This patient has no known medications. Results Test Description Test Time Test Comments Text Results Atomic Results Result Comments BASIC METABOLIC PANEL 2019-07-13 07:43:00 SODIUM (test code=NA) 144 mmol/L 136-145 POTASSIUM (test code=K) 4.0 mmol/L 3.5-5.1 CHLORIDE (test code=CL) 111.0 mmol/L 98-107 CARBON DIOXIDE (test code=CO2) 23.0 mmol/L 21-32 ANION GAP (test code=GAP) 14.0 10-20 GLUCOSE (test code=GLU) 113 mg/dL 74-106 BLOOD UREA NITROGEN (test code=BUN) 16 mg/dL 7-18 GLOMERULAR FILTRATION RATE (test code=GFR) > 60 mL/min >=60 Estimated GFR by using Modified MDRD formula.Chronic kidney disease is defined as either kidney damageor GFR <60 mL/min/1.73 m2 for >3 months. CREATININE (test code=CREAT) 0.80 mg/dL 0.7-1.3 BUN/CREATININE RATIO (test code=BUN/CREA) 19.2 10-20 CALCIUM (test code=CA) 9.0 mg/dL 8.5-10.1 BASIC METABOLIC [id number] 07:38:00* Test Item Value Reference Range Comments SODIUM (test code=NA) 144 mmol/L 136-145 POTASSIUM (test code=K) 4.0 mmol/L 3.5-5.1 CHLORIDE (test code=CL) 111.0 mmol/L 98-107 CARBON DIOXIDE (test code=CO2) mmol/L 21-32 ANION GAP (test code=GAP) 10-20 GLUCOSE (test code=GLU) mg/dL 74-106 BLOOD UREA NITROGEN (test code=BUN) mg/dL 7-18 GLOMERULAR FILTRATION RATE (test code=GFR) mL/min >=60 CREATININE (test code=CREAT) mg/dL 0.7-1.3 BUN/CREATININE RATIO (test code=BUN/CREA) 10-20 CALCIUM (test code=CA) mg/dL 8.5-10.1 CBC W/AUTO [id number] 07:18:00* Test Item Value Reference Range Comments WHITE BLOOD CELL (test code=WBC) 6.9 K/mm3 4.5-12.5 RED BLOOD CELL (test code=RBC) 5.04 mill/mm3 4.0-5.8 HEMOGLOBIN (test code=HGB) 15.5 gram/dL 13.0-17.5 HEMATOCRIT (test code=HCT) 46.0 % 42.0-52.0 MEAN CELL VOLUME (test code=MCV) 91.3 fL 80-98 MEAN CELL HGB (test code=MCH) 30.8 picogram 27.0-33.0 MEAN CELL HGB CONCETRATION (test code=MCHC) 33.7 gram/dL 33.0-36.0 RED CELL DISTRIBUTION WIDTH (test code=RDW) 12.5 % 11.6-16.2 RED CELL DISTRIBUTION WIDTH SD (test code=RDW-SD) 41.2 fL 37.0-51.0 PLATELET COUNT (test code=PLT) 175 K/mm3 150-450 MEAN PLATELET VOLUME (test code=MPV) 11.7 fL 6.7-11.0 NEUTROPHIL % (test code=NT%) 43.3 % 39.0-69.0 IMMATURE GRANULOCYTE % (test code=IG%) 0.3 % 0.0-5.0 LYMPHOCYTE % (test code=LY%) 42.9 % 25.0-55.0 MONOCYTE % (test code=MO%) 10.6 % 0.0-10.0 EOSINOPHIL % (test code=EO%) 2.2 % 0.0-5.0 BASOPHIL % (test code=BA%) 0.7 % 0.0-1.0 NUCLEATED RBC % (test code=NRBC%) 0.0 % 0-0 NEUTROPHIL # (test code=NT#) 2.99 K/mm3 1.8-7.7 IMMATURE GRANULOCYTE # (test code=IG#) 0.02 x10 3/uL 0-0.03 LYMPHOCYTE # (test code=LY#) 2.96 K/mm3 1.0-5.0 MONOCYTE # (test code=MO#) 0.73 K/mm3 0-0.8 EOSINOPHIL # (test code=EO#) 0.15 K/mm3 0.0-0.5 BASOPHIL # (test code=BA#) 0.05 K/mm3 0.0-0.2 NUCLEATED RBC # (test code=NRBC#) 0.00 K/mm3 0.0-0.1 MANUAL DIFF REQUIRED (test code=MDIFF) NO [id number] 06:22:00* Test Item Value Reference Range Comments GLUBED (test code=GLUBED) 112 mg/dL 74-106 Performed by certified pest control operator at [facility] [id number] 21:27:00* Test Item Value Reference Range Comments GLUBED (test code=GLUBED) 198 mg/dL 74-106 Performed by certified pest control operator at [facility] [id number] 19:29:00* Test Item Value Reference Range Comments TROPONIN-I (test code=TROPI) <0.015 ng/mL 0-0.045 COMMENTS TO EYELET MAKER: COLLECT 3 HOURS AFTER PREVIOUS [id number] 17:02:00* Test Item Value Reference Range Comments GLUBED (test code=GLUBED) 143 mg/dL 74-106 Performed by certified pest control operator at [facility] [id number] 15:13:00* Test Item Value Reference Range Comments TROPONIN-I (test code=TROPI) <0.015 ng/mL 0-0.045 COMMENTS TO EYELET MAKER: COLLECT 3 HOURS AFTER PREVIOUS [id number] 12:37:00* Test Item Value Reference Range Comments GLYCOSYLATED HEMOGLOBIN (HA1C) (test code=GLYHGB) 7.6 % HbA1 4.8-6.0 ESTIMATED AVERAGE GLUCOSE (test code=EAG) 171 MG/DL [id number] 10:47:00* Test Item Value Reference Range Comments GLUBED (test code=GLUBED) 138 mg/dL 74-106 Performed by certified pest control operator at [facility] - XR CHEST 1 [id number] 20:39:00 Name: DANELLE SEGUNDO [facility] : 1955 Age/S:63 /M [address] [facility] Unit#:[id number] [place]: [place] [address] Phys: Sangita Sarabia DO Dis Date: PHONE #: [phone] Status: REG ER FAX #: [phone] Exam Date: 07/11/2019 Reason: CHEST PAIN EXAMS: CPT CODE: [id number] XR CHEST 1 V 82430 REASON FOR EXAM: CHEST PAIN Exam Order Date: 07/11/2019 7:26 PM Ordering M.D.: Sangita Sarabia DO PROCEDURE: - XR CHEST 1 V COMPARISON: 2 view chest x-ray August 25, 2014 FINDINGS: Right subclavian AICD is unchanged with the leads terminating in the right ventricle. The lungs are clear. There is no pleural effusion or pneumothorax. Pulmonary vascularity is within normal limits. Cardiomediastinal silhouette is normal in size for technique. The mediastinal contours are within normal limits. Degenerative changes in the spine and acromioclavicular joints appear similar. The visualized upper abdomen is within normal limits. IMPRESSION: No acute cardiopulmonary process. at 2038 Reported and signed by: Daniel Carolina MD CC: Sangita Sarabia DO; Satya Nur Technologist: SRUTHI TALAVERA RT(R),RDMS,CT Trnscrpt Data: 07/11/2019 (2038) [email or web address] Orig Print D/T: S: 07/11/2019 (2041) PAGE 1 Signed R eport BASIC METABOLIC [id number] 19:58:00* Test Item Value Reference Range Comments SODIUM (test code=NA) 142 mmol/L 136-145 POTASSIUM (test code=K) 4.0 mmol/L 3.5-5.1 CHLORIDE (test code=CL) 105 mmol/L 101-109 CARBON DIOXIDE (test code=CO2) 24.3 mmol/L 21-32 ANION GAP (test code=GAP) 17 mmol/L 10-20 GLUCOSE (test code=GLU) 143 mg/dL 74-106 BLOOD UREA NITROGEN (test code=BUN) 17 mg/dL 3-21 GLOMERULAR FILTRATION RATE (test code=GFR) 59 mL/min >=60 Estimated GFR by using Modified MDRD formula.Chronic kidney disease is defined as either kidney damageor GFR <60 mL/min/1.73 m2 for >3 months. CREATININE (test code=CREAT) 1.24 mg/dL 0.55-1.3 BUN/CREATININE RATIO (test code=BUN/CREA) 13.7 10-20 CALCIUM (test code=CA) 9.0 mg/dL 8.4-10.2 [id number] 19:58:00* Test Item Value Reference Range Comments TROPONIN-I (test code=TROPI) <0.015 ng/mL 0.00-0.056 B-TYPE NATRIURETIC [id number] 19:55:00* Test Item Value Reference Range Comments B-TYPE NATRIURETIC PEPTIDE (test code=BNP) 59.7 pg/mL 0-100 BASIC METABOLIC [id number] 19:50:00* Test Item Value Reference Range Comments SODIUM (test code=NA) 142 mmol/L 136-145 POTASSIUM (test code=K) 4.0 mmol/L 3.5-5.1 CHLORIDE (test code=CL) 105 mmol/L 101-109 CARBON DIOXIDE (test code=CO2) 24.3 mmol/L 21-32 ANION GAP (test code=GAP) 17 mmol/L 10-20 GLUCOSE (test code=GLU) 143 mg/dL 74-106 BLOOD UREA NITROGEN (test code=BUN) 17 mg/dL 3-21 GLOMERULAR FILTRATION RATE (test code=GFR) 59 mL/min >=60 Estimated GFR by using Modified MDRD formula.Chronic kidney disease is defined as either kidney damageor GFR <60 mL/min/1.73 m2 for >3 months. CREATININE (test code=CREAT) 1.24 mg/dL 0.55-1.3 BUN/CREATININE RATIO (test code=BUN/CREA) 13.7 10-20 CALCIUM (test code=CA) 9.0 mg/dL 8.4-10.2 [id number] 19:50:00* Test Item Value Reference Range Comments TROPONIN-I (test code=TROPI) ng/mL 0-0.045 CBC W/O [id number] 19:42:00* Test Item Value Reference Range Comments WHITE BLOOD CELL (test code=WBC) 8.7 K/mm3 4.5-12.5 RED BLOOD CELL (test code=RBC) 4.91 mill/mm3 4.0-5.8 HEMOGLOBIN (test code=HGB) 15.4 gram/dL 13.0-17.5 HEMATOCRIT (test code=HCT) 45.4 % 42.0-52.0 MEAN CELL VOLUME (test code=MCV) 92.5 fL 80-98 MEAN CELL HGB (test code=MCH) 31.4 picogram 27.0-33.0 MEAN CELL HGB CONCETRATION (test code=MCHC) 33.9 gram/dL 33.0-36.0 RED CELL DISTRIBUTION WIDTH (test code=RDW) 12.1 % 11.6-16.2 RED CELL DISTRIBUTION WIDTH SD (test code=RDW-SD) 41.7 fL 37.0-51.0 PLATELET COUNT (test code=PLT) 192 K/mm3 150-450 MEAN PLATELET VOLUME (test code=MPV) 11.4 fL 6.7-11.0
--- OUTSIDE RECORDS SUMMARY | 2019-07-17 19:27 | XMS REPORT ---
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 Active Assessment Reflux esophagitis K21.0 Active Assessment Pure hypercholesterolemia E78.0 Active Assessment Hepatitis B B19.10 Active Problem Pure hypercholesterolemia 272.0 Active Problem Atherosclerosis of [place] arteries of the extremities with intermittent claudication 440.21 Active Problem 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
--- OUTSIDE RECORDS SUMMARY | 2019-07-17 19:27 | XMS REPORT ---
Author Author Lilliana Tijerina Organization [employer] Address Unknown Phone Unavailable Care Team Providers Care Switch Repairer Name Role Phone Lilliana Tijerina CP Unavailable Allergies, Adverse Reactions, Alerts Substance Reaction Event Type N.K.D.A. 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 Active Assessment Benign hypertensive heart disease without congestive heart failure I11.9 Active Assessment Reflux esophagitis K21.0 Active Assessment Coronary atherosclerosis I25.10 Active Assessment Cardiac defibrillator in place Z95.810 Active Medications Medication Code System Code Instructions Start Date End Date Status Dosage Furosemide ND 86020122295 40 MG Orally Once a day Active 1 tablet Potassium NDC 0 8 Orally Once a day Active 1 tablet Multivitamin NDC 0 Active as direct Omeprazole ND 65407827234 40 MG Orally Once a day Active 1 capsule Aspirin ND 50903700664 81 MG Orally Once a day Active 1 tablet Plavix ND 47623639169 75 MG Orally Once a day Active 1 tablet Zolpidem Tartrate ND 84874764977 5 MG Orally Once a day Active 1 tablet at bedtime Fluticasone Propionate ND 95491635874 0.005 % Externally Twice a day Active 1 application to affected area Simvastatin ND 03264230968 20 MG Orally Once a day Active 1 tablet in the evening Carvedilol ND 74037578401 25 MG Orally Twice a day Active 1 tablet with food Vital Signs Date/Time: May 29, 2018 BMI 33.20 Index Weight 170 lbs Height 5'7 in Cardiac Monitoring Heart Rate 99 /min Blood Pressure Diastolic 80 mm Hg Blood Pressure Systolic 100 mm Hg Results No Known Results Summary Purpose [employer] Submission
[2019-07-17] MEDS ORDERED: KETOROLAC TROMETHAMINE 30 MG/ML VIAL IV ONE (20:04)
[2019-07-17 20:18] LABS: BASOPHILS # (AUTO) 0.1 (0.0-0.1); BASOPHILS % 0.7 % (0.0-1.0); EOSINOPHILS # (AUTO) 0.1 (0.0-0.4); EOSINOPHILS % 1.1 % (0.0-6.0); HEMATOCRIT 45.9 % (38.2-49.6); HEMOGLOBIN 16.1 g/dL (14.0-18.0); LYMPHOCYTES # (AUTO) 2.8 (1.0-3.2); LYMPHOCYTES % 33.1 % (18.0-39.1); MEAN CORPUSCULAR HEMOGLOBIN 31.8 pg (28-32); MEAN CORPUSCULAR HGB CONC 35.1 g/dL (31-35); MEAN CORPUSCULAR VOLUME 90.5 fL (81-99); MONOCYTES # (AUTO) 0.9 (0.2-0.8); MONOCYTES % 10.6 % (4.4-11.3); NEUTROPHILS # (AUTO) 4.6 (2.1-6.9); PLATELET COUNT 230 x10e3/uL (140-360); RED BLOOD COUNT 5.07 x10e6/uL (4.3-5.7); RED CELL DISTRIBUTION WIDTH 12.5 % (11.7-14.4)
--- NOTE | 2019-07-17 20:23 | Diagnostic Imaging Report ---
Frontal and lateral views of the chest. HISTORY: Chest soreness, chest heaviness, shortness of breath COMPARISON: None available. DISCUSSION: Overlying monitoring leads. Right-sided implanted cardiac device. Lungs: Low lung volumes result in bibasilar vascular crowding, accentuation of the pulmonary interstitial markings, central pulmonary vasculature, and the cardiac silhouette. Allowing for these limitations, the findings are as follows: No evidence of a consolidative pneumonia or pulmonary alveolar edema. Pleura: No pleural effusion or pneumothorax. Heart and mediastinum: The cardiomediastinal silhouette appear(s) unremarkable. Diffuse scattered atherosclerotic vascular calcifications. Bones and soft tissues: Probable DISH (Diffuse idiopathic skeletal hyperostosis). IMPRESSION: No acute radiographic abnormality. Signed by: Dr. Dax Lewis D.O., M.M.M. on 07/17/2019 8:20 PM
[2019-07-17 20:27] LABS: INR 0.92; PROTHROMBIN TIME 12.8 seconds (11.9-14.5)
[2019-07-17 20:35] LABS: ALANINE AMINOTRANSFERASE 21 IU/L (0-55); ALBUMIN 4.5 g/dL (3.5-5.0); ALBUMIN/GLOBULIN RATIO 1.6 (0.8-2.0); ALKALINE PHOSPHATASE 80 IU/L (40-150); ANION GAP 19.2 mmol/L (8-16); BLOOD UREA NITROGEN 15 mg/dL (7-26); BUN/CREATININE RATIO 14 (6-25); CALCIUM 10.2 mg/dL (8.4-10.2); CARBON DIOXIDE 22 mmol/L (22-29); CHLORIDE 105 mmol/L (98-107); CREATINE KINASE 110 IU/L (30-200); CREATININE, SERUM 1.04 mg/dL (0.72-1.25); EST GLOMERULAR FILTRATION RATE > 60 ML/MIN (60-); GLUCOSE 135 mg/dL (74-118); POTASSIUM 4.2 mmol/L (3.5-5.1); SODIUM 142 mmol/L (136-145)
[2019-07-17 21:01] VITALS: BP 128/89
== END 2019-07-17 21:08 | disposition home or self-care (01) ==
LOC: ER 19:23
DX: R07.89 Other chest pain (principal); E78.5 Hyperlipidemia, unspecified; I48.91 Unspecified atrial fibrillation; I25.10 Atherosclerotic heart disease of native coronary artery without angina pectoris; I10 Essential (primary) hypertension; E11.9 Type 2 diabetes mellitus without complications; I49.3 Ventricular premature depolarization; Z95.810 Presence of automatic (implantable) cardiac defibrillator; Z79.02 Long term (current) use of antithrombotics/antiplatelets; Z79.82 Long term (current) use of aspirin; Z79.4 Long term (current) use of insulin
CPT/HCPCS: 36415; 71046; 80053; 82550; 82553; 84484; 85025; 85610; 85730; 93005; 96374; 99284; J1885